=== PATIENT | male | born 1970 | race Caucasian/White ===

== ENCOUNTER 2017-11-10 07:40 | Observation (INO) ==
--- NOTE | 2017-11-10 08:01 | Emergency Department Note ---
Disposition Clinical Impression: Chest pain due to CAD Disposition: Admitted As Inpatient Condition: Good Chest Pain HPI - General Chief Complaint: ED Chest Pain Stated Complaint: CP,Face tingling Time Seen by Provider: 11/10/17 07:43 Source: patient Mode of arrival: ambulatory Limitations: no limitations Vital Signs Reviewed: Yes Nursing Notes Reviewed: Yes - History of Present Illness HPI Narrative: 46 year old male with history of diabetes and TIA in 2016 presents with chest pain. Pt stated it was intermittent chest pressure on right side chest. It lasted around 5 to 10 minutes each time. It radiates to right shoulder. store standards associate with right shoulder weakness and right face tingling sensation. Pt complaint: chest pain Onset (ago): hour(s) (2) Duration: intermittent Onset: during rest Pain Location: right chest Severity scale (1-10): 0 Quality: other (pressure) Pain Radiation: RUE - Related Data Home Medications Medication Instructions Recorded Confirmed Atorvastatin Calcium [Lipitor] 20 mg PO DAILY 12/28/15 11/10/17 Empagliflozin [Jardiance] 10 mg PO DAILY 12/28/15 11/10/17 Escitalopram [Lexapro] 20 mg PO DAILY 12/28/15 11/10/17 Metoprolol Succinate 200 mg PO DAILY 12/28/15 11/10/17 Multivitamin [Multi-Day Vitamins] 1 tab PO DAILY 12/28/15 11/10/17 Vitamin E Acetate [Vitamin E] 400 unit PO DAILY 12/28/15 11/10/17 amLODIPine [Norvasc] 10 mg PO DAILY 12/28/15 11/10/17 Insulin Glargine,Hum.rec.anlog 28 units SQ QPM 11/10/17 11/10/17 [Harsh Contreras] Previous Rx's Medication Instructions Recorded Aspirin Enteric Coated [Aspirin EC] 81 mg PO DAILY #30 tablet. 12/29/15 Allergies Allergy/AdvReac Type Severity Reaction Status Date / Time Penicillins Allergy Hives Verified 11/10/17 08:00 Constitutional: Denies: fever, chills, weakness, weight change Eyes: Denies: eye pain, eye discharge, vision change ENT ED: Denies: ear pain, throat pain, dental pain, hearing loss, epistaxis, congestion, dysphagia Cardiovascular: Reports: chest pain. Denies: palpitations, dyspnea on exertion , edema, syncope Respiratory: Denies: cough, dyspnea, wheezes, hemoptysis, stridor Gastrointestinal: Denies: abdominal pain, nausea, vomiting, diarrhea, constipation, hematemesis, melena, hematochezia Genitourinary: Denies: urgency, dysuria, frequency, hematuria Musculoskeletal: Denies: back pain, neck pain, arthralgia, myalgia Integumentary: Denies: rash, abrasion, lesions Neurological: Reports: weakness (right shoulder). Denies: headache, numbness, paresthesias (right face tingling sensation), confusion, abnormal gait, vertigo Psychiatric: Denies: anxiety, depression, suicidal thoughts, homicidal thoughts , auditory hallucinations, visual hallucinations Endocrine: Denies: fatigue Hematological/Lymphatic: Denies: easy bleeding, easy bruising Allergic/Immunologic: Denies: facial swelling, urticaria Chest Pain PMH - Past Medical History Medical history: Reports: diabetes, hypertension, other Psychiatric history: Reports: depression - Social History Smoking Status: 2nd Hand Smoke Exposure Alcohol use: Reports: none Drug use: Reports: none Physical Exam - General Limitations: no limitations General appearance: alert, in no apparent distress - Head Head exam: atraumatic, normocephalic, normal inspection - Eye Eye exam: Present: normal appearance, PERRL, EOMI. Absent: scleral icterus, conjunctival injection - ENT ENT exam: normal exam, normal oropharynx, mucous membranes moist - Neck Neck exam: Present: normal inspection, full ROM, trachea midline - Chest Chest inspection: Present: normal inspection, symmetric chest wall rise - Respiratory Respiratory exam: Present: normal lung sounds bilaterally. Absent: respiratory distress - Cardiovascular Cardiovascular exam: Present: regular rate, normal rhythm, normal heart sounds - Abdominal Exam Abdominal exam: Present: soft, Non-Tender. Absent: tenderness, distention, guarding, rebound, rigidity - Extremities Exam Extremities exam: Present: normal inspection, full ROM. Absent: tenderness, pedal edema - Back Exam Back exam: Present: normal inspection, full ROM. Absent: tenderness - Neurological Exam Neurological exam: Present: alert, oriented X3, normal gait, other (bilateral shoulders and arms strength normal). Absent: CN II-XII intact (slightly diminished sensory in right face), motor sensory deficit - Psychiatric Psychiatric exam: Present: normal affect, normal mood - Skin Skin exam: Present: warm, dry, intact, normal color Course Vital Signs Temperature 97.7 F 11/10/17 07:42 Pulse Rate 120 11/10/17 07:42 Respiratory Rate 20 11/10/17 07:42 Blood Pressure 161/101 11/10/17 07:42 O2 Sat by Pulse Oximetry 96 11/10/17 07:42 Temperature 98.3 F 11/11/17 12:09 Pulse Rate 76 11/11/17 12:09 Respiratory Rate 16 11/11/17 12:09 Blood Pressure 152/89 11/11/17 12:09 O2 Sat by Pulse Oximetry 96 11/11/17 12:09 Oxygen Delivery Oxygen Delivery Room Air Chest Pain - MDM Narrative Medical decision making narrative: 46 year old male with history of diabetes and TIA in 2016 presents with intermittent chest pain since yesterday, associate with tingling sensation on right side face and right shoulder weakness. Physical exam: slightly diminished sensory on right side face, no other neurology deficit. EKG unremarkable, troponin negative. Dr. Troncoso saw the patient as well, based on pt's risk factor , pt will be admit to hospital for chest pain rule out AL. - Lab Data Lab results reviewed: Yes I reviewed the patient's lab results. Result diagrams: 11/10/17 08:28 11/10/17 08:28 Lab Results 11/10/17 11/10/17 Range/Units 08:28 08:28 WBC 6.7 (4.3-11.1) K/mcL RBC 5.11 (4.19-5.50) M/mcL Hgb 15.9 (12.9-16.9) g/dL Hct 44.3 (37.5-50.1) % MCV 86.7 (83.0-100.0) fL MCH 31.1 (28.0-33.3) pg MCHC 35.9 H (31.6-35.5) g/dL RDW 12.5 (11.5-14.5) % Plt Count 219 (140-400) K/mcL MPV 11.1 (9.4-12.4) fL Immature Gran % 1.5 (0-4) % Seg Neutrophils % 71.6 % Lymphocytes % 15.5 % Monocytes % 7.5 % Eosinophils % 3.3 % Basophils % 0.6 % Neutrophils # 4.8 (1.6-8.9) K/mcL Lymphocytes # 1.0 (0.6-4.6) K/mcL Monocytes # 0.5 (0.0-1.3) K/mcL Eosinophils # 0.2 (0.0-0.6) K/mcL Basophils # 0.0 (0.0-0.2) K/mcL Sodium 137 (136-145) mEq/L Potassium 3.5 (3.5-5.1) mEq/L Chloride 99 (98-107) mEq/L Carbon Dioxide 26 (23-29) mEq/L BUN 10 (6-20) mg/dL Creatinine 0.76 (0.70-1.30) mg/dL Est GFR ( Amer) > 60 (> 60) Est GFR (Non-Af Amer) > 60 (> 60) BUN/Creatinine Ratio 13 (6-26) Glucose 205 H (70-105) mg/dL Calculated Osmolality 289 (280-300) Calcium 9.4 (8.6-10.3) mg/dL Total Bilirubin 0.6 (0.3-1.0) mg/dL AST 19 (13-39) Units/L ALT 23 (7-52) Units/L Alkaline Phosphatase 56 (34-104) Units/L Troponin I < 0.03 (< 0.04) ng/mL Serum Total Protein 6.5 (6.4-8.9) g/dL Albumin 3.9 (3.5-5.7) g/dL Globulin 2.6 (2.4-3.5) g/dL Albumin/Globulin Ratio 1.5 (1.1-2.2) - Radiology Data Radiology results reviewed: Yes I reviewed the patient's radiology results.
[2017-11-10 08:58] LABS: Basophils % 0.6 %; Eosinophils # 0.2 K/mcL (0.0-0.6); Eosinophils % 3.3 %; Hematocrit 44.3 % (37.5-50.1); Hemoglobin 15.9 g/dL (12.9-16.9); Immature Granulocytes % 1.5 % (0-4); Lymphocytes % 15.5 %; Mean Corpuscular HGB Conc 35.9 g/dL (31.6-35.5); Mean Corpuscular Hemoglobin 31.1 pg (28.0-33.3); Mean Corpuscular Volume 86.7 fL (83.0-100.0); Mean Platelet Volume 11.1 fL (9.4-12.4); Monocytes # 0.5 K/mcL (0.0-1.3); Monocytes % 7.5 %; Neutrophils # 4.8 K/mcL (1.6-8.9); Platelet Count 219 K/mcL (140-400); Red Blood Count 5.11 M/mcL (4.19-5.50); Red Cell Distribution Width 12.5 % (11.5-14.5); Segmented Neutrophils % 71.6 %
[2017-11-10 09:11] LABS: Troponin I < 0.03 ng/mL (< 0.04)
[2017-11-10 09:12] LABS: Alanine Aminotransferase 23 Units/L (7-52); Albumin 3.9 g/dL (3.5-5.7); Albumin/Globulin Ratio 1.5 (1.1-2.2); Alkaline Phosphatase 56 Units/L (34-104); Aspartate Amino Transferase 19 Units/L (13-39); BUN/Creatinine Ratio 13 (6-26); Bilirubin,Total 0.6 mg/dL (0.3-1.0); Blood Urea Nitrogen 10 mg/dL (6-20); Calcium 9.4 mg/dL (8.6-10.3); Carbon Dioxide 26 mEq/L (23-29); Chloride 99 mEq/L (98-107); Globulin 2.6 g/dL (2.4-3.5); Glucose 205 mg/dL (70-105); Osmolality,Calculated 289 (280-300); Potassium 3.5 mEq/L (3.5-5.1); Sodium 137 mEq/L (136-145); Total Protein 6.5 g/dL (6.4-8.9); eGFR For Non-African Americans > 60 (> 60)
[2017-11-10] MEDS ORDERED: D5% in Water 1,000 ML IVC PRN (10:17)
[2017-11-10] MEDS ORDERED: *HR* Dextrose 50 % in Water (Syg) 50 ML SYRINGE IVP PRN (10:17)
[2017-11-10] MEDS ORDERED: Dextrose Gel 15 GM/37.5 ML TUBE PO PRN ×2 (10:17)
--- NOTE | 2017-11-10 10:24 | Internal Med History&Physical ---
Date of Encounter: 11/10/17 Time of Encounter: 10: Internal Medicine - H&P: HPI Chief complaint: Chest pain, neuro symptoms Admitted From: Home Plans for Post Hospital Care: Home History of present illness: Mr. Jaramillo is a 46 year old male with known medical history of hypertension, obesity, diabetes mellitus, depression who presented with chest pain said to have started at 6 AM this morning upon waking up. Patient reports chest pain was on a scale of 5/10, radiating to the right shoulder with associated right upper extremity numbness and tingling, as well as right facial numbness. At the time of review, chest pain has resolved, neurologic symptoms have resolved. He denies prior history of same. He denies nausea/vomiting, no diaphoresis or shortness of breath associated with the chest pain. He denies palpitations or dizziness. He denies any other neurologic symptoms. The patient has a chronic history of neck pain suspect cervical sclerosis or stenosis. Reports compliance with his home medications. However, blood pressure on presentation was 182/112, at time of review, blood pressure remained uncontrolled at 152/100. He denies abdominal, genitourinary symptoms. He denies illicit substance use, he is a never smoker. No significant family history of cardiac disease. Workup in the ER unremarkable at the time. Except for elevated uncontrolled blood pressure. Past Med Surg Social Fam HX - Past Medical History Medical history: diabetes, hypertension, other Psychiatric history: depression - Past Surgical History Additional surgical history: THUMB SURGERY ON LEFT HAND, LEFT KNEE SURGERY - Social History Smoking Status: 2nd Hand Smoke Exposure Smokeless Tobacco Status: No Alcohol use: none Drug use: none - Family History Mother Hx Family Cardiac Disorders: Yes Father Hx Family Cardiac Disorders: Yes Hx Family Endocrine Disorder: Yes Internal Medicine - H&P: Meds Atorvastatin Calcium [Lipitor] 20 mg PO DAILY 12/28/15 [History] Empagliflozin [Jardiance] 10 mg PO DAILY 12/28/15 [History] Escitalopram [Lexapro] 20 mg PO DAILY 12/28/15 [History] Metoprolol Succinate 200 mg PO DAILY 12/28/15 [History] Multivitamin [Multi-Day Vitamins] 1 tab PO DAILY 12/28/15 [History] Vitamin E Acetate [Vitamin E] 400 unit PO DAILY 12/28/15 [History] amLODIPine [Norvasc] 10 mg PO DAILY 12/28/15 [History] Aspirin Enteric Coated [Aspirin EC] 81 mg PO DAILY #30 tablet. 12/29/15 [Rx] Insulin Glargine,Hum.rec.anlog [Harsh Contreras] 28 units SQ QPM 11/10/17 [ History] 3 Allergy/AdvReac Type Severity Reaction Status Date / Time Penicillins Allergy Hives Verified 11/10/17 08:00 All Systems PM: A 10-system review of systems was performed and is negative for pertinent findings except as documented above in the HPI. - Constitutional Constitutional: as per HPI - EENT Eyes: as per HPI Ears: as per HPI Nose, mouth and throat: as per HPI - Cardiovascular Cardiovascular ROS IM: as per HPI - Respiratory Respiratory: as per HPI - Gastrointestinal Gastrointestinal: as per HPI - Musculoskeletal Musculoskeletal ROS IM: as per HPI - Integumentary Integumentary IM: as per HPI - Neurological Neurological ROS: as per HPI - Hematologic/Lymphatic Hematologic/Lymphatic: as per HPI - Constitutional Vitals: Temp Pulse Resp BP Pulse Ox 97.7 F 98 20 154/106 97 11/10/17 08:03 11/10/17 09:30 11/10/17 09:30 11/10/17 09:30 11/10/17 09:30 Exam: Gen: NAD, VSS Neuro: AAOX3, no focal deficits, no speech deficits, no facial paralysis, no motor deficits, no sensory deficits. HEENT: Pupils regular and reactive to light, oral mucosa moist, normal neck inspection, head is atraumatic. Chest: Equal chest movement bilaterally, no reproducible chest wall tenderness. Respiratory: Clear to auscultation bilaterally. Heart: S1, S2, regular rate and rhythm. No murmurs/gallops/rubs. Abdomen: Obese, nontender, no palpable organomegaly. Bowel sounds present in all quadrants. Musculoskeletal system: Moves all joints equally, no joint swelling. No pedal edema Skin: No skin rash. Internal Med - H&P Results - Labs CBC & Chem 7: 11/10/17 08:28 11/10/17 08:28 - Assessment and plan (1) Chest pain Current Visit: Yes Status: Acute Assessment and plan: Chest pain, noncardiac, however patient with significant risk factors. Chest pain resolved at time will review, initial EKG unremarkable. Segment changes, initial troponin negative. Checks x-rays unremarkable and is no chest wall tenderness. Trend troponins, if second troponin negative, obtain stress tests from today. Continue to monitor. Control blood pressure. Continue aspirin, Lipitor patient's home dose. Qualifiers: Chest pain type: unspecified Qualified Code(s): R07.9 - Chest pain, unspecified (2) Hypertensive urgency Current Visit: Yes Status: Acute Assessment and plan: Presenting blood pressure on review of monitor was 180 systolic, over 112 diastolic. Blood pressure continues to be repeated. Resume patient's home medications with initial doses starting now Continue to monitor and titrate medications when necessary. (3) Obesity (BMI 30-39.9) Current Visit: Yes Status: Chronic Assessment and plan: Lifestyle modification. (4) Neurological symptoms Current Visit: Yes Status: Acute Assessment and plan: Patient presented with right upper extremity numbness and tingling, and weakness , resolved at time of review. Differentials include transient ischemic attack, or nonspecific neurologic symptoms secondary to uncontrolled blood pressure. Admitting head CT is unremarkable. Obtain brain MRI as patient has significant risk factors including diabetes mellitus, obesity, hypertension which is uncontrolled, and hyperlipidemia. Continue to monitor. (5) Diabetes mellitus Current Visit: Yes Status: Chronic Assessment and plan: Resume home dose of basal insulin, continue sliding scale insulin. ADA diet Fingerstick before meals at bedtime Check A1c with morning labs. 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 Qualifiers: Depression Type: unspecified Qualified Code(s): F32.9 - Major depressive disorder, single episode, unspecified - Time Spent With Patient Total time spent is greater than 50% in coordination of care (as documented) at patient's floor/unit and/or counseling patient: Greater than 35 minutes
[2017-11-10] MEDS: Insulin LISPRO 300 UNITS/3 ML VIAL SQ SCH ×2 (13:02→17:32)
[2017-11-10] MEDS: amLODIPine 5 MG TABLET PO SCH (13:02)
[2017-11-10] MEDS: Metoprolol XL (24 HR) Succ 50 MG TAB.ER.24H PO SCH (13:02)
[2017-11-10] MEDS ORDERED: Insulin DETEMIR 100 UNIT/ML X5UNITS SQ SCH (21:00)
[2017-11-10] MEDS ORDERED: Insulin LISPRO 300 UNITS/3 ML VIAL SQ SCH (21:00)
[2017-11-10] MEDS ORDERED: Acetaminophen 325 MG TABLET PO ONE (22:03)
[2017-11-11 06:21] LABS: Chol/HDL Ratio 5.8 (0-4.9)
[2017-11-11] MEDS ORDERED: Regadenoson 0.4 MG/5 ML SYRINGE IVP ONE (08:07)
[2017-11-11] MEDS ORDERED: Multivit/Ca/Min/Fe/FA 1 TAB TABLET PO SCH (09:00)
[2017-11-11] MEDS ORDERED: Aspirin Enteric Coated 81 MG Tablet PO SCH (09:00)
[2017-11-11 09:07] LABS: Estimated Average Glucose 266 mg/dl; Hemoglobin A1C 10.9 %
[2017-11-11] MEDS: Metoprolol XL (24 HR) Succ 50 MG TAB.ER.24H PO SCH (10:22)
[2017-11-11] MEDS: amLODIPine 5 MG TABLET PO SCH (10:22)
[2017-11-11] MEDS: Insulin LISPRO 300 UNITS/3 ML VIAL SQ SCH (10:23)
[2017-11-11 12:10] VITALS: BP 152/89
--- NOTE | 2017-11-11 12:20 | Discharge Summary ---
Orders not resulted at time of discharge: Pending orders 11/11/17 05:33 NM marianne perf SPECT multi [NM] Routine Date of Encounter: 11/11/17 Time of Encounter: 12:00 - Discharge Diagnosis (1) Chest pain Priority: Primary Status: Acute Assessment and Plan: 46 year old male with known medical history of hypertension, obesity, diabetes mellitus, depression who presented with chest pain said to have started at 6 AM this morning upon waking up. Patient reports chest pain was on a scale of 5/10 , radiating to the right shoulder with associated right upper extremity numbness and tingling, as well as right facial numbness. At the time of review , chest pain has resolved, neurologic symptoms have resolved. He denies prior history of same. He denies nausea/vomiting, no diaphoresis or shortness of breath associated with the chest pain. He denies palpitations or dizziness. He denies any other neurologic symptoms. He was assessed with chest pain r/o ACS and rightupper extremity tingling r/o acute CVA/ TIA. He had 2 negative troponins and a nuclear stress test which came back negative for any cardiac ischemia. A CT head and MRI brain were also unremarkable. He was therefore discharged in a stable condition. 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 Jaramillo is a 46 year old male - Time Spent with Patient Total time spent providing and/or coordinating discharge services: - Discharge Medications Home Medications: Atorvastatin Calcium [Lipitor] 20 mg PO DAILY 12/28/15 [History] Empagliflozin [Jardiance] 10 mg PO DAILY 12/28/15 [History] Escitalopram [Lexapro] 20 mg PO DAILY 12/28/15 [History] Metoprolol Succinate 200 mg PO DAILY 12/28/15 [History] Multivitamin [Multi-Day Vitamins] 1 tab PO DAILY 12/28/15 [History] Vitamin E Acetate [Vitamin E] 400 unit PO DAILY 12/28/15 [History] amLODIPine [Norvasc] 10 mg PO DAILY 12/28/15 [History] Aspirin Enteric Coated [Aspirin EC] 81 mg PO DAILY #30 tablet. 12/29/15 [Rx] Insulin Glargine,Hum.rec.anlog [Toujeo Solostar] 28 units SQ QPM 11/10/17 [ History] Allergies/Adverse Reactions: 3 Allergy/AdvReac Type Severity Reaction Status Date / Time Penicillins Allergy Hives Verified 11/10/17 08:00 Date of admission: 11/10/17 09:56 Primary care physician: Justin Jansen MD - Constitutional Vitals: Temp Pulse Resp BP Pulse Ox 98.3 F 76 16 152/89 96 11/11/17 12:09 11/11/17 12:09 11/11/17 12:09 11/11/17 12:09 11/11/17 12:09 Exam: Gen: NAD, VSS Neuro: AAOX3, no focal deficits, no speech deficits, no facial paralysis, no motor deficits, no sensory deficits. HEENT: Pupils regular and reactive to light, oral mucosa moist, normal neck inspection, head is atraumatic. Chest: Equal chest movement bilaterally, no reproducible chest wall tenderness. Respiratory: Clear to auscultation bilaterally. Heart: S1, S2, regular rate and rhythm. No murmurs/gallops/rubs. Abdomen: Obese, nontender, no palpable organomegaly. Bowel sounds present in all quadrants. Musculoskeletal system: Moves all joints equally, no joint swelling. No pedal edema Skin: No skin rash. - Patient Status Disposition: Home, Self-Care Condition: Good - Discharge Instructions Instructions: Chest Pain (DC), Chest Pain (GEN) Follow Up With: Justin Jansen MD [Primary Care Provider] - 11/17/17 2:00 pm
--- NOTE | 2017-11-14 12:27 | Electrocardiograph Report ---
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
== END 2017-11-11 15:19 | disposition home or self-care (01) ==
LOC: 3BNU 07:40 → EMEROOARM 07:40 → 3BNU 10:25
PROVIDERS: ADMIT Internal Medicine; ATTEND Internal Medicine